=== PATIENT | male | born 1980 | race Caucasian/White ===

== ENCOUNTER 2018-08-05 10:40 | Emergency (ER) | payer SELFPAY ==
[2018-08-05 10:47] VITALS: BP 119/65; PULSE 54; RESP 15; TEMP 36.5; O2SAT 99; BMI 30.4
--- NOTE | 2018-08-05 10:47 | DI.RAD.S_ITS ---
PROCEDURE: XR HAND LT MIN 3V INDICATIONS: injury laceration, table saw 1st, 2nd, 3 rd digit TECHNIQUE: 3 views of the hand(s) acquired. COMPARISON: None. FINDINGS: Bones: There is a small fragment of missing bone from the radial aspect of the distal aspect of the proximal phalanx of the 3rd finger. No additional definite bony injury is detected on these plain films. Soft tissues: Soft tissue injury is seen. IMPRESSION: Small fragment of missing bone from the distal aspect of the proximal phalanx of the 3rd finger. Soft tissue injury. Dictated by: Joel Huertas M.D. on 08/05/2018 at 10:06 Approved by: Joel Huertas M.D. on 08/05/2018 at 10:09
--- NOTE | 2018-08-05 10:59 | ED.WOUNDLAC ---
HPI - Wound/Laceration General Chief Complaint: Wound/Laceration Stated Complaint: TABLE SAW TO HAND Time Seen by Provider: 08/05/18 10:49 Source: patient Mode of arrival: ambulatory Limitations: no limitations History of Present Illness HPI narrative: 38 y/o right hand dominate male here for evaluation of cuts to his left hand sustained just prior arrival from a table saw. pt states that he was reaching for a piece of wood and his hand was just drawn into the saw had immediate pain, covered with a bandage and came to the ER. Related Data Previous Rx's Medication Instructions Recorded cephalexin [Keflex] 500 mg PO QID 7 Days #28 cap 08/05/18 hydrocodone-acetaminophen [[place]] 1 tab PO Q4-6H PRN #10 tab 08/05/18 Allergies Allergy/AdvReac Type Severity Reaction Status Date / Time No Known Drug Allergies Allergy Verified 08/05/18 10:47 Review of Systems Constitutional Denies fatigue and Denies fever(s) Musculoskeletal Comments: cuts to the fingers to his left hand. Integumentary/Breasts Comments: cuts to the laft hand. Neurologic Comments: some tingling to the left thumb. Endocrine Denies fatigue Hematologic/Lymphatic Denies easy bleeding and Denies easy bruising [facility] Medical History Healthy adult (Acute) Surgical History No pertinent past surgical history (Acute) Social History Smoking Status: Current every day smoker Exam Initial Vital Signs Initial Vital Signs: Vital Signs Temperature 97.7 F 08/05/18 10:47 Pulse Rate 54 L 08/05/18 10:47 Respiratory Rate 15 08/05/18 10:47 Blood Pressure 119/65 08/05/18 10:47 Pulse Oximetry 99 08/05/18 10:47 Const General: cooperative, healthy appearing, comfortable, well developed, well groomed and No acute distress Orientation: alert, awake and oriented x3 Resp Effort & Inspection: normal respiratory effort Cardio Pulses: radial pulses present on the left Skin Other: pt with an avulsion of the pad of the left thumb. does not involve the nail. no bone seen. Pt with a 3 CM laceration to the volar aspect of the index finger just distal to the PIP joint. this cut is superficial. no active bleeding. no joint involvement. Pt with a 5cm cut to the dorsum of the middle finger that crosses the PIP joint. this does appear to open to the joint with the wound is explored. Neuro Other: sensation intact to light touch to the thumb, index and middle finger to the left hand. Extrem Other: left wrist unremarkable. full ROM of the MCP joints of all fingers. full ROM of the IP joint of the thumb, full ROM active and passive of the DIP and PIP joints of the index and middle fingers. Psych Appearance: grossly normal and well kempt Procedures Laceration Repair Laceration 1: Site: hand (left thumb) Side (If applicable): left Size (cm): 4 Description: flap, irregular and clean Depth: simple, single layer Local Anesthetic: lidocaine 1% Amount of anesthesia used (mL): 4 Pre-repair: wound explored and irrigated extensively Skin layer closed with: nylon Size (cm): 5-0 Number of sutures: 5 Laceration 2: Site: hand (left index finger) Side (If applicable): left Size (cm): 3 Description: linear Depth: simple, single layer Local Anesthetic: lidocaine 1% Amount of anesthesia used (mL): 5 Pre-repair: wound explored, irrigated extensively and deep structures intact Skin layer closed with: nylon Size (cm): 5-0 Number of sutures: 7 Technique: simple, interrupted Laceration 3: Site: hand (left middle finger) Side (If applicable): left Size (cm): 5 Description: linear and irregular Depth: involves tendon Local Anesthetic: lidocaine 1% Amount of anesthesia used (mL): 6 Pre-repair: wound explored and irrigated extensively Skin layer closed with: nylon Size (cm): 5-0 Number of sutures: 5 Technique: simple, interrupted Course Orders Ordered: Discontinued Medications Diphtheria/Tetanus/Acell Pertussis (Adacel) 0.5 ml IM .ONCE ONE Stop: 08/05/18 11:05 Last Admin: 08/05/18 13:47 Dose: 0.5 ml Cefazolin Sodium/Dextrose (Ancef) 2 gm in 100 mls @ 200 mls/hr IV NOW ONE Stop: 08/05/18 11:33 Last Infusion: 08/05/18 12:06 Dose: 0 mls/hr Admin: 08/05/18 11:22 Dose: 200 mls/hr Vital Signs - 8 hr 08/05/18 10:47 Temperature 97.7 F Pulse Rate 54 L Respiratory Rate 15 Blood Pressure 119/65 Pulse Oximetry 99 MDM - Wound/Laceration Imaging Data x ray hand: Radiologist's impression: PROCEDURE: XR HAND LT MIN 3V INDICATIONS: injury laceration, table saw 1st, 2nd, 3 rd digit TECHNIQUE: 3 views of the hand(s) acquired. COMPARISON: None. FINDINGS: Bones: There is a small fragment of missing bone from the radial aspect of the distal aspect of the proximal phalanx of the 3rd finger. No additional definite bony injury is detected on these plain films. Soft tissues: Soft tissue injury is seen. IMPRESSION: Small fragment of missing bone from the distal aspect of the proximal phalanx of the 3rd finger. Soft tissue injury. Dictated by: Joel Huertas M.D. on 08/05/2018 at 10:06 Approved by: Joel Huertas M.D. on 08/05/2018 at 10:09 [facility] Narrative Medical decision making narrative: Td updated, ABX given here in the ER. pt is N/V intact. discussed case including the x-ray with dr Sanchez with ortho who recommended loose closure and PO abx and follow up in their office. discussed this with the pt. he was given care instructions and return precautions. he was given ortho follow up numbers. he expressed understanding and agreement with plan. Discharge Plan Departure Patient Disposition: Home Clinical Impression: Finger laceration Discharge Date/Time: 08/05/18 13:58 Interventions: ED Discharge Assessment Last Done: 08/05/18 13:51 Instructions: DI for Laceration Repair -- Complex Suture Activity Restrictions/Additional Instructions: Keep the bandages on for the next 24 hr. After that you can take them off. You can shower like normal use soap and water like normal. Do not scrub your fingers. Do not soak her hand anything. Call the [facility] group at [phone] for follow-up. Return to the emergency department for any new or worsening symptoms Prescriptions: New hydrocodone-acetaminophen [[place]] 5-325 mg tablet 1 tab PO Q4-6H PRN (Reason: pain) Qty: 10 RF: 0 cephalexin [Keflex] 500 mg capsule 500 mg PO QID 7 Days Qty: 28 RF: 0
[2018-08-05] MEDS: CEFAZOLIN 2 GM/100 ML FROZ.PIGGY IV (11:22)
[2018-08-05 12:54] VITALS: BP 130/80; PULSE 66; RESP 15; O2SAT 98
[2018-08-05] MEDS: TET,DIPH,PERTUSS(ACELL),VAC/PF 0.5 ML SYRINGE IM (13:47)
== END 2018-08-05 13:58 | disposition home or self-care (01) ==
PROVIDERS: Emergency Provider Emergency Medicine
DX: S61.012A Laceration without foreign body of left thumb without damage to nail, initial encounter (principal); S61.211A Laceration without foreign body of left index finger without damage to nail, initial encounter; S61.213A Laceration without foreign body of left middle finger without damage to nail, initial encounter; W27.0XXA Contact with workbench tool, initial encounter
CPT/HCPCS: 12004; 73130; 90471; 96365; 96372; 99283; 99284; 90715; J0690

== ENCOUNTER → 2021-01-30 15:19 | Outpatient (ROUT) | payer OTHER, SELFPAY ==
[2021-01-30 15:38] LABS: COVID19 -Nasal RAPID Negative (Negative)
== END ==
PROVIDERS: Visit Provider Family Medicine
DX: Z20.822 Contact with and (suspected) exposure to COVID-19 (principal); Z86.16 Personal history of COVID-19
CPT/HCPCS: 87635

== ENCOUNTER → 2021-06-21 12:55 | Outpatient (ROUT) | payer OTHER, SELFPAY ==
[2021-06-21 13:19] LABS: COVID19 -Nasal RAPID Negative (Negative)
== END ==
PROVIDERS: Visit Provider Family Medicine
DX: R19.7 Diarrhea, unspecified (principal); R10.9 Unspecified abdominal pain; Z20.822 Contact with and (suspected) exposure to COVID-19
CPT/HCPCS: 87635

== ENCOUNTER → 2021-11-05 13:47 | Outpatient (ROUT) | payer OTHER, SELFPAY ==
[2021-11-05 17:17] LABS: COVID19 -Nasal RAPID POSITIVE (Negative)
== END ==
PROVIDERS: Visit Provider Family Medicine
DX: U07.1 COVID-19 (principal); Z20.822 Contact with and (suspected) exposure to COVID-19
CPT/HCPCS: 87635

== ENCOUNTER → 2024-01-07 15:29 | Outpatient (ROUT) | payer OTHER, SELFPAY ==
[2024-01-07 15:53] LABS: Add Manual Diff / Slide Review NO; Basophils Absolute Auto 0 /uL (0-100); Basophils Percent Auto 0.8 % (0-2); Eosinophils Absolute Auto 100 /uL (0-450); Eosinophils Percent Auto 3.4 % (2-4); Hematocrit 41.5 % (41-53); Hemoglobin 14.2 g/dL (13.5-17.5); Lymphocytes Absolute Auto 1900 /uL (1100-4500); Lymphocytes Percent Auto 44.4 % (25-40); Mean Corpuscular HGB Conc 34.2 % (30-36); Mean Corpuscular Hemoglobin 29.2 PG (26-34); Mean Corpuscular Volume 85.3 fL (80-100); Monocytes Absolute Auto 400 /uL (0-900); Monocytes Percent Auto 9.2 % (3-14); Neutrophils Absolute Auto 1800 /uL (1500-7000); Neutrophils Percent Auto 42.2 % (50-75); Platelet Count 182 X10^3/uL (150-400); Red Blood Cell Count 4.87 X10^6/uL (4.5-5.9); Red Cell Distribution Width 13.8 % (11.6-14.8); White Blood Cell Count 4.3 X10^3/uL (4.5-11.0)
[2024-01-07 17:23] LABS: Alanine Aminotransferase 84 IU/L (<50); Albumin 4.7 g/dL (3.5-5.0); Albumin Globulin Ratio 1.6 (1.0-2.8); Alkaline Phosphatase 74 U/L (38-126); Aspartate Aminotransferase 37 IU/L (17-59); Blood Urea Nitrogen 17 mg/dL (9-20); Calcium 9.3 mg/dL (8.4-10.2); Carbon Dioxide 25 mmol/L (22-32); Chloride 109 mmol/L (98-107); Cholesterol 240 mg/dL (140-199); Estimated Glomerular Filt Rate > 60 mL/min (>60); Globulin 2.9 g/dL (1.7-4.1); Glucose 90 mg/dL (70-100); HDL Cholesterol 38 mg/dL (40-60); HEMOLYSIS < 15 (0-50); Potassium 4.5 mmol/L (3.4-5.1); Sodium 140 mmol/L (137-145); Total Protein 7.6 g/dL (6.3-8.2)
[2024-01-07 17:39] LABS: Vitamin D 25 Hydroxy (D3) 23.9 ng/mL (30.0-100.0)
[2024-01-07 17:54] LABS: Prostate Specific Antigen 0.449 ng/mL (0.10-4.00)
== END ==
PROVIDERS: Visit Provider Family Medicine
DX: Z00.00 Encounter for general adult medical examination without abnormal findings (principal); Z80.42 Family history of malignant neoplasm of prostate
CPT/HCPCS: 80053; 82306; 82465; 83718; 84153; 85025